=== PATIENT | male | born 1980 | race Two or more races ===

== ENCOUNTER 2024-12-05 16:04 | Inpatient (IN) | payer MEDICARE, OTHER ==
[~2024-12-05] VITALS: Ht 175.3 cm; Wt 120.2 kg
--- NOTE | 2024-12-05 17:03 | ED.PDOC ---
HPI (NEURO) HPI Comments This is a 44 year old male presenting to the ED with chief complaint of dizziness. Patient reports that he has been experiencing increased dizziness and imbalance since this morning. Patient relays that he normally is able to move around his home with a motorized wheelchair, however, it has run out of battery and he has been forced to use a walker. Patient states he has history of 3 CVAs in the past. Patient notes he was brought in by his administrative accountant. Patient denies any N/V, fever, chills, chest pain, SOB, or headache. Chief Complaint: Dizziness Time Seen by MD: 17:01 Reviewed Notes: Nurses Notes, Medications, Allergies Information Source: Patient Mode of Arrival: Wheelchair Severity: Moderate Dizziness/Weakness Severity: Unable to do activities Timing: Hours Duration: Since onset Prehospital treatment: None Symptoms: Imbalance Past Medical History PAST MEDICAL HISTORY: CVA (x3), DM, HTN Surgical History: Denies all surgeries Family History Family History: Reviewed,noncontributory to illness Social History Smoker: Cigarettes Alcohol: Denies ETOH Use Drugs: Denies Drug Use Lives In: Home Constitutional: denies: chills, diaphoresis, fatigue, fever, malaise, sweats, weakness, others EENTM: denies: blurred vision, double vision, ear bleeding, ear discharge, ear drainage, ear pain, ear ringing, eye pain, eye redness, hearing loss, mouth pain, mouth swelling, nasal discharge, nose bleeding, nose congestion, nose pain, photophobia, tearing, throat pain, throat swelling, voice changes, others Respiratory: denies: cough, hemoptysis, orthopnea, SOB at rest, shortness of breath, SOB with excertion, stridor, wheezing, others Cardiovascular: denies: chest pain, dizzy spells, diaphoresis, Dyspnea on exertion, edema, irregular heart beat, left arm pain, lightheadedness, palpitations, PND, syncope, others Gastrointestinal: denies: abdomen distended, abdominal pain, blood streaked bowels, constipated, diarrhea, dysphagia, difficulty swallowing, hematemesis, melena, nausea, poor appetite, poor fluid intake, rectal bleeding, rectal pain, vomiting, others Genitourinary: denies: burning, dysuria, flank pain, frequency, hematuria, incontinence, penile discharge, penile sore, pain, testicle pain, testicle swelling, urgency, others Neurological: reports: dizziness; denies: fainting, headache, left sided numbness, left sided weakness, numbness, paresthesia, pre-existing deficit, right sided numbness, right sided weakness, seizure, speech problems, tingling, tremors, weakness, others Musculoskeletal: denies: back pain, gout, joint pain, joint swelling, muscle pain, muscle stiffness, neck pain, others Integumetry: denies: bruises, change in color, change in hair/nails, dryness, laceration, lesions, lumps, rash, wounds, others Allergic/Immunocompromised: denies: Difficulty Healing, Frequent Infections, Hives, Itching, others Hematologic/Lymphatic: denies: anemia, blood clots, easy bleeding, easy bruising, swollen glands, others Endocrine: denies: excessive hunger, excessive sweating, excessive thirst, excessive urination, flushing, intolerance to cold, intolerance to heat, unexplained weight gain, unexplained weight loss, others Psychiatric: denies: anxiety, bipolar disorder, depression, hopeless, panic disorder, schizophrenia, sleepless, suicidal, others All Other Systems: Reviewed and Negative Physical Exam General Appearance: Moderate Distress HEENT: Normal ENT Inspection, Pharynx Normal, TMs Normal Neck: Full Range of Motion, Non-Tender, Normal, Normal Inspection Respiratory: Chest Non-Tender, Lungs Clear, No Accessory Muscle Use, No Respiratory Distress, Normal Breath Sounds Cardiovascular: No Edema, No JVD, No Murmur, No Gallop, Normal Peripheral Pulses, Regular Rate/Rhythm Breast Exam: Deferred Gastrointestinal: No Organomegaly, Non Tender, No Pulsatile Mass, Normal Bowel Sounds, Soft Genitalia: Deferred Pelvic: Deferred Rectal: Deferred Extremities: No calf tenderness, Normal capillary refill, No pedal edema Musculoskeletal : Apperance: Normal Neurologic: Alert, lobster man II-XII nml as Tested, Motor Weakness, Normal Affect, Normal Mood, No Sensory Deficits Cerebellar Function: Other (Unsteady on the gait) Reflexes: Normal Skin: Dry, Normal Color, Warm Lymphatic: No Adenopathy Was a procedure done? Was a procedure done?: No Differential Diagnosis (SZ) Seizure: CVA/TIA General Weakness: Anemia, Dehydration X-Ray, Labs, Meds, VS Vital Signs Date Time Temp Pulse Resp B/P (MAP) Pulse Ox O2 Delivery O2 Flow Rate FiO2 12/05/24 20:12 98.4 83 17 158/95 (116) 96 98.4 12/05/24 17:10 97.9 84 12 166/82 (110) 96 97.9 Lab Test 12/05/24 17:27 12/05/24 17:12 12/05/24 16:50 Range/Units Urine Color Yellow Yellow Urine Clarity Turbid H Clear Urine pH 5.5 5.0-9.0 Urine Specific [place] 1.029 1.001-1.035 Urine Protein 1+ H Negative Urine Ketones Trace Negative Urine Blood 1+ H Negative /uL Urine Nitrite Negative Negative Urine Bilirubin Negative Negative Urine Urobilinogen Normal Negative mg/dL Urine Leukocyte Esterase Negative Negative /uL Urine RBC 9 0 - 3 /hpf Urine Microscopic WBC 4 H 0-3 /HPF Urine Squamous Epithelial Cells Few <5 /hpf Urine Calcium Oxalate Crystals Many None Seen Urine Bacteria Few H None Seen /hpf Urine Mucus Few None Seen Urine Sperm Present None Seen /hpf Urine Glucose 1+ H Normal mg/dL White Blood Count 7.2 4.4-10.8 10^3/uL Red Blood Count 4.55 4.5-5.90 10^6/uL Hemoglobin 14.8 13.5-17.5 g/dL Hematocrit 43.1 41.0-53.0 % Mean Corpuscular Volume 94.8 80.0-100.0 fL Mean Corpuscular Hemoglobin 32.5 H 28.0-32.0 pg Mean Corpuscular Hemoglobin Concent 34.3 32.0-36.0 g/dL Red Cell Distribution Width 13.9 11.8-14.3 % Platelet Count 240 140-450 10^3/uL Mean Platelet Volume 7.6 6.9-10.8 fL Neutrophils (%) (Auto) 69.1 37.0-80.0 % Lymphocytes (%) (Auto) 19.8 10.0-50.0 % Monocytes (%) (Auto) 7.5 0.0-12.0 % Eosinophils (%) (Auto) 2.5 0.0-7.0 % Basophils (%) (Auto) 1.1 0.0-2.0 % Neutrophils # (Auto) 5.0 1.6-8.6 10 ^3/uL Lymphocytes # (Auto) 1.4 0.4-5.4 10 ^3/uL Monocytes # (Auto) 0.5 0-1.3 10 ^3/uL Eosinophils # (Auto) 0.2 0-0.8 10 ^3/uL Basophils # (Auto) 0.1 0-0.2 10 ^3/uL Nucleated Red Blood Cells 0.0 % Sodium Level 141 136-145 mmol/L Potassium Level 3.6 3.5-5.1 mmol/L Chloride Level 106 98-107 mmol/L Carbon Dioxide Level 27 20-31 mmol/L Anion Gap 8 5-15 Blood Urea Nitrogen 12 9-23 mg/dL Creatinine 0.89 0.700-1.30 mg/dL Glomerular Filtration Rate Calc 108 >90 mL/min BUN/Creatinine Ratio 13.5 10.0-20.0 Serum Glucose 145 H 74-106 mg/dL Calcium Level 9.4 8.7-10.4 mg/dL POC Glucose 143 H 70-106 mg/dl CAT scan of the head is negative The patient's CBC is within normal limits The chemistry panel is within normal limits The urine test is negative The patient is being admitted to the hospitalist at this time The diagnosis is autonomic dysfunction Images Reviewed?: Images reviewed and evaluated by me Time of 1ST Reevaluation: 20:16 Reevaluation 1ST: Unchanged Patient Education/Counseling: Diagnosis, Treatment, Prognosis Family Education/Counseling: No Family Present Departure 1 Departure Time of Disposition: 20:16 Impression: Primary Impression: Autonomic dysfunction Additional Impression: Generalized weakness Disposition: ADMITTED INPATIENT Admit to: [facility] Condition: Fair Critical Care Note Critical Care Time?: Yes (45 min-critical care time only) Stability Stability form required: Yes Unstable for transfer: Telemetry monitoring (Telemetry monitoring required), ED Physician Assesment (Clinical assesment) Heart Score Heart Score: Heart Score Response (Comments) Value History N/A 0 EKG N/A 0 Age N/A 0 Risk Factors N/A 0 Troponin N/A 0 Total 0 I personally scribed for LIVAN FATIMA MD ([email or web address]) on 12/05/24 at 17:02. Electronically submitted by Adis Land ([email or web address]). I personally scribed for LIVAN FATIMA MD ([email or web address]) on 12/05/24 at 17:05. Electronically submitted by Adis Land ([email or web address]). LIVAN FATIMA MD Dec 05, 2024 17:02
--- NOTE | 2024-12-05 17:19 | DVH ---
EXAM: CT HEAD WITHOUT CONTRAST INDICATION: dizziness TECHNIQUE: CT images of the head were obtained without administration of IV contrast. CT scans at [facility] use dose modulation, iterative reconstruction, and/or weight based dosing when appropriate to reduce radiation dose to as low as reasonably achievable. COMPARISON: None FINDINGS: PARENCHYMA: No acute hemorrhage. There is no mass effect, midline shift, or herniation. There is pres ervation of the pederson white differentiation. Mild scattered hypoattenuation along the periventricular, centrum semiovale, and deep white matter tracts, which are nonspecific however statistically most li angelique represent chronic microvascular ischemic change. VENTRICLES: No hydrocephalus. EXTRA-AXIAL SPACES: No extra-axial fluid collections. OTHER: The bony structures are intact. Mild scattered paranasal sinus mucosal thickening. IMPRESSION: 1. No CT evidence of an acute intracranial abnormality.
[2024-12-05 17:23] LABS: Basophils # (auto) 0.1 10 ^3/uL (0-0.2); Basophils % (auto) 1.1 % (0.0-2.0); Eosinophils # (auto) 0.2 10 ^3/uL (0-0.8); Eosinophils % (auto) 2.5 % (0.0-7.0); Hematocrit 43.1 % (41.0-53.0); Hemoglobin 14.8 g/dL (13.5-17.5); Lymphocytes # (auto) 1.4 10 ^3/uL (0.4-5.4); Lymphocytes % (auto) 19.8 % (10.0-50.0); Mean Corpuscular Hemoglobin 32.5 pg (28.0-32.0); Mean Corpuscular Hgb Conc. 34.3 g/dL (32.0-36.0); Mean Corpuscular Volume 94.8 fL (80.0-100.0); Monocytes # (auto) 0.5 10 ^3/uL (0-1.3); Monocytes % (auto) 7.5 % (0.0-12.0); Neutrophils % (auto) 69.1 % (37.0-80.0); Platelet Count (auto) 240 10^3/uL (140-450); Red Blood Cells 4.55 10^6/uL (4.5-5.90); Red Cell Distribution Width 13.9 % (11.8-14.3); White Blood Cell 7.2 10^3/uL (4.4-10.8)
[2024-12-05 17:33] LABS: Chloride 106 mmol/L (98-107); Potassium 3.6 mmol/L (3.5-5.1); Sodium 141 mmol/L (136-145)
[2024-12-05 17:34] LABS: Anion Gap 8 (5-15); Carbon Dioxide 27 mmol/L (20-31)
[2024-12-05 17:35] LABS: Calcium 9.4 mg/dL (8.7-10.4)
[2024-12-05 17:39] LABS: BUN/Creatinine Ratio 13.5 (10.0-20.0); Blood Urea Nitrogen 12 mg/dL (9-23)
[2024-12-05 17:40] LABS: Glucose 145 mg/dL (74-106)
[2024-12-05 18:14] LABS: Urine Bacteria FEW /hpf (None Seen); Urine Blood 1+ /uL (Negative); Urine Clarity Turbid (Clear); Urine Color Yellow (Yellow); Urine Mucus FEW (None Seen); Urine Protein, UAD 1+ (Negative); Urine Specific Gravity 1.029 (1.001-1.035); Urine Sperm PRESENT /hpf (None Seen); Urine Squamous Epithelial Cell FEW /hpf (<5); Urine Urobilinogen Normal (Negative); Urine WBC 4 /HPF (0-3); Urine pH 5.5 (5.0-9.0)
[2024-12-05] MEDS ORDERED: NITROGLYCERIN 0.4 MG SL TAB SL PRN (21:00)
[2024-12-05] MEDS ORDERED: ONDANSETRON HCL 4 MG/2 ML VIAL IV PRN (21:00)
[2024-12-05] MEDS ORDERED: MORPHINE SULFATE INJ 2 MG/ml SYRG IV PRN ×2 (21:00)
[2024-12-05] MEDS ORDERED: ACETAMINOPHEN 325 MG TAB PO PRN (21:00)
[2024-12-05] MEDS ORDERED: DOCUSATE SOD 100 MG CAP PO PRN (21:00)
--- NOTE | 2024-12-05 21:12 | DVHHPRES ---
History of Present Illness Resident Creating Document: ARTHUR SUBRAMANIAN RESIDENT History of Present Illness , a 44-year-old male with a history of nicotine abuse, grade II obesity, diabetes, hypertension, left hemiplegia at baseline and three prior strokes presented to the ED with dizziness and imbalance that began earlier in the day. He typically uses a motorized wheelchair but had to use a walker due to a battery, which worsened his unsteadiness. He was brought in by his elder counselor and denied nausea, vomiting, fever, chills, chest pain, shortness of breath, or headache. A head CT, CBC, chemistry panel, and urine test were all within normal limits for a patient presenting with dizziness and imbalance. The patient, who is hemodynamically stable and afebrile with mildly elevated blood pressure ([id number]), is being admitted under hospitalist care with further workup. The patient's symptoms are attributed to multiple possible causes: seiz ures potentially related to prior cerebrovascular accidents (CVA) or transient ischemic attacks (TIA); general weakness possibly due to anemia or dehydration; and a diagnosis of autonomic dysfunction, which may be contributing to his dizziness and imbalance. No prior visits were noted. CT head, labs so far unremarkable. Extremely poor historian, can not remember his PCP name or any other medications that he takes. Conversation points out towards possible medication nonadherence. He is taken care by a caregiver, who we will visit during the daytime to provide further medical details along with medication list. At home patient mentions having a walker with which he is able to walk with occasional support. He has means of food and hydration at home. Past Medical History nicotine abuse, grade II obesity, diabetes, hypertension, left-sided hemiplegia and three prior strokes Past Surgical History: None Family History: Hyperlipidemia, Hypertension Family History Noncontributory Smoke: # pack years (Twenty pack years, presumably patient has cut down and still smoking on 3 cigarettes per day.) ALCOHOL: none Drugs: None Lives: Alone (Caregiver occasionally comes to help) Domestic Violence: Neg Review of Systems Constitutional: Yes: Weakness; No: Fever, Chills, Sweats, Malaise, Other Eyes: No: Pain, Vision change, Conjunctivae inflammation, Eyelid inflammation, Other, Redness ENT: No: Ear pain, Ear discharge, Nose pain, Nose discharge, Nose congestion, Mouth pain, Mouth swelling, Throat pain, Throat swelling, Other Respiratory: No: Cough, Dry, Shortness of breath, SOB with excertion, Wheezing, Hemoptysis, Pleuritic Pain, Sputum, Wheezing, Other Cardiovascular: No: Chest Pain, Palpitations, Orthopnea, Paroxysmal Noc. Dyspnea, Edema, Lt Headedness, Other Gastrointestinal: No: Nausea, Vomiting, Abdominal Pain, Diarrhea, Constipation, Melena, Hematochezia, Other Genitourinary: No Dysuria, No Frequency, No Incontinence, No Hematuria, No Retention, No Other Musculoskeletal: No: other, neck pain, shoulder pain, arm pain, back pain, hand pain, leg pain, foot pain Skin: No: Rash, Lesions, Jaundice, Bruising, Other Neurological: Incoordination, Other (Gait instability and dizziness); No: Weak ness, Numbness, Change in speech, Confusion, Seizures Allergies: Coded Allergies: Egg-derived Products (Verified Allergy, Unknown, 12/06/24) Oatmeal (Verified Allergy, Unknown, 12/06/24) Venlafaxine (Verified Allergy, Unknown, 12/05/24) Uncoded Allergies: NUTS (Allergy, Unknown, 12/06/24) Medications Current Medications Medications Dose Ordered Sig/Alejandra Route Start Time Stop Time Status Last Admin Dose Admin Ondansetron HCl 4 mg Q4HP PRN IV 12/05/24 21:00 UNV Docusate Sodium 100 mg BIDPRN PRN PO 12/05/24 21:00 UNV Acetaminophen 650 mg Q6HP PRN PO 12/05/24 21:00 UNV Morphine Sulfate 2 mg Q4HPRN PRN IV 12/05/24 21:00 UNV Nitroglycerin 0.4 mg Q5MINP PRN SL 12/05/24 21:00 UNV Morphine Sulfate 2 mg Q30M PRN IV 12/05/24 21:00 UNV Nicotine 1 patch DAILY TD 12/06/24 10:00 UNV Exam Vital Signs Vital Signs Date Time Temp Pulse Resp B/P (MAP) Pulse Ox O2 Delivery O2 Flow Rate FiO2 12/05/24 20:12 98.4 83 17 158/95 (116) 96 98.4 General Appearance: Alert, Oriented X3, Cooperative, No acute distress HEENT: Atraumatic, PERRLA, EOMI, Mucous membr. moist/pink, Other (Mild dehydration) Respiratory: Clear to auscultation, Normal air movement, Other (Breathing comfortably in the room air) Cardiovascular: Regular rate, Normal S1, Normal S2, No murmurs Abdominal: Normal bowel sounds, Soft, No tenderness, No hepatospenomegaly, No masses Extremities: No clubbing, No cyanosis, No edema, Normal pulses, No tenderness/swelling Skin: No rashes, No breakdown, No significant lesion Neuro: Normal speech, Normal tone, Sensation intact, Cranial nerves 3-12 NL, Reflexes 2+ (On right side, exaggerated on left side), Other (Baseline patient has left-sided hemiparesis, secondary to previous strokes, still can move strength 1/5 both upper and lower extremity on the left side. Mild contracture. Apart from baseline no new changes, grossly negative for BPPV) Psych/Mental Status: Mental status NL, Mood NL Labs/Xrays Labs Test 12/05/24 17:27 12/05/24 17:12 12/05/24 16:50 Range/Units Urine Color Yellow Yellow Urine Clarity Turbid H Clear Urine pH 5.5 5.0-9.0 Urine Specific [place] 1.029 1.001-1.035 Urine Protein 1+ H Negative Urine Ketones Trace Negative Urine Blood 1+ H Negative /uL Urine Nitrite Negative Negative Urine Bilirubin Negative Negative Urine Urobilinogen Normal Negative mg/dL Urine Leukocyte Esterase Negative Negative /uL Urine RBC 9 0 - 3 /hpf Urine Microscopic WBC 4 H 0-3 /HPF Urine Squamous Epithelial Cells Few <5 /hpf Urine Calcium Oxalate Crystals Many None Seen Urine Bacteria Few H None Seen /hpf Urine Mucus Few None Seen Urine Sperm Present None Seen /hpf Urine Glucose 1+ H Normal mg/dL White Blood Count 7.2 4.4-10.8 10^3/uL Red Blood Count 4.55 4.5-5.90 10^6/uL Hemoglobin 14.8 13.5-17.5 g/dL Hematocrit 43.1 41.0-53.0 % Mean Corpuscular Volume 94.8 80.0-100.0 fL Mean Corpuscular Hemoglobin 32.5 H 28.0-32.0 pg Mean Corpuscular Hemoglobin Concent 34.3 32.0-36.0 g/dL Red Cell Distribution Width 13.9 11.8-14.3 % Platelet Count 240 140-450 10^3/uL Mean Platelet Volume 7.6 6.9-10.8 fL Neutrophils (%) (Auto) 69.1 37.0-80.0 % Lymphocytes (%) (Auto) 19.8 10.0-50.0 % Monocytes (%) (Auto) 7.5 0.0-12.0 % Eosinophils (%) (Auto) 2.5 0.0-7.0 % Basophils (%) (Auto) 1.1 0.0-2.0 % Neutrophils # (Auto) 5.0 1.6-8.6 10 ^3/uL Lymphocytes # (Auto) 1.4 0.4-5.4 10 ^3/uL Monocytes # (Auto) 0.5 0-1.3 10 ^3/uL Eosinophils # (Auto) 0.2 0-0.8 10 ^3/uL Basophils # (Auto) 0.1 0-0.2 10 ^3/uL Nucleated Red Blood Cells 0.0 % Sodium Level 141 136-145 mmol/L Potassium Level 3.6 3.5-5.1 mmol/L Chloride Level 106 98-107 mmol/L Carbon Dioxide Level 27 20-31 mmol/L Anion Gap 8 5-15 Blood Urea Nitrogen 12 9-23 mg/dL Creatinine 0.89 0.700-1.30 mg/dL Glomerular Filtration Rate Calc 108 >90 mL/min BUN/Creatinine Ratio 13.5 10.0-20.0 Serum Glucose 145 H 74-106 mg/dL Calcium Level 9.4 8.7-10.4 mg/dL POC Glucose 143 H 70-106 mg/dl Assessment/Plan Assessment/Plan Assessment: # new onset of dizziness with falling sensation and # extremely poor historian # prior history of 3 strokes # history of nicotine abuse with more than 20 pack-year smoking history currently on 3 cigarettes per day # active nicotine vapor # reports medical noncompliance/nonadherence # baseline left-sided hemiparesis # hypertension, likely uncontrolled # grade 2 obesity # history of diabetes # hypertension # ruled out hemorrhagic stroke with negative CT. # possible TIA # possible autonomic dysfunction # deconditioning, comparatively reduced mobility # ruled out DVT # mild hypokalemia Plan: # conservative management telemetry, physical therapy, continue aspirin and atorvastatin # based on physical therapy might need sw consult. # obtain full medical history and medication list from caregiver when visits during the daytime. # nicotine patch as needed # counseled regarding medical compliance # in the absence of appropriate medical history started the patient on 5 mg amlodipine after ruling out acute intracranial pathology # weight loss counseling done. # check for HbA1c # 11 minute cessation counseling done for smoking cessation. # counseled regarding the downside of vaping # labs daily and electrolyte management as needed. # echo/TTE/carotid Doppler pending along with orthostatic and relevant examinati ons Code status: Full code discussed over 31 minutes along with care plan. Patient is agreeable. Patient is being treated in hospital with further workup. Case discussed with Dr. Velasco. Plan discussed with: Patient My Orders Orders - ARTHUR SUBRAMANIAN RESIDENT Procedure Category Date Status Time Admit ADMIT 12/05/24 Transmitted 20:52 Allergies RONNELL 12/05/24 In Process 20:52 Code Status CODE 12/05/24 Transmitted 20:52 Ondansetron Hcl PHA 12/05/24 Logged (Zofran) 21:00 Docusate Sodium PHA 12/05/24 Logged Capsule (Colace 21:00 Fall Risk Precautions RONNELL 12/05/[address] 20:52 Complete Blood Count LAB 12/06/24 Verified 04:00 Comprehensive LAB 12/06/24 Verified Metabolic Panel 04:00 Pt Request For Service PT 12/05/24 Logged 20:52 Echo 2d Mode Cardiac US 12/05/24 Logged DOP 20:52 Carotid Duplx W Color US 12/05/24 Logged DOP 20:52 Condition: Serious RONNELL 12/05/24 In Process 20:52 Acetaminophen Tablet PHA 12/05/24 Logged (Tylenol Tablet) 21:00 Clear Liq Diet DIET 12/06/24 Transmitted Breakfast Bedside Commode RONNELL 12/05/24 In Process 20:52 Maintain Bed Rest RONNELL 12/05/24 In Process 20:52 Morphine Sulfate PHA 12/05/24 Logged Injection 21:00 Sequential RONNELL 12/05/24 In Process Compression Device Nitroglycerin PHA 12/05/24 Logged Sublingual (Ntrostat 21:00 Morphine Sulfate PHA 12/05/24 Logged Injection 21:00 Oxygen By Nasal RT 12/05/24 Transmitted Cannula 20:52 Stat Ekg For Chest RONNELL 12/05/24 In Process Pain 20:52 Notify Md Of Changes RONNELL 12/05/24 In Process From Base 20:52 Sld Teacher For [facility] 12/05/24 In Process 24 Hours 20:52 Emergency Dysrhythmia [facility] 12/05/24 In Process Protocol 20:52 Rhythm Strips Once [facility] 12/05/24 In Process Every Shift 20:52 Orthostatic Vital ED NURSING 12/05/24 Transmitted Signs Chest Xray 1 View XY 12/05/24 Logged 21:01 Drug Screen LAB 12/05/24 Logged 21:01 Thyroid Stimulating LAB 12/05/24 In Process Hormone 21:01 Troponin-I Hs LAB 12/05/24 In Process 21:01 Ekg Heart Rolfe HDVI 12/05/24 Logged 21:01 D-Dimer LAB 12/05/24 Logged 21:01 Prothrombin Time W/ LAB 12/05/24 Logged INR 21:01 Bilat Lower Dvt US 12/05/24 Logged 21:01 B-Type Natriuretic LAB 12/05/24 In Process Peptide 21:06 Nicotine 14mg/24hr PHA 12/06/24 Logged (Nicoderm 14mg/24hr) 10:00 Get List Of Home ORDERS 12/05/24 Verified Medications 21:09 Communication Order ORDERS 12/05/24 Verified 21:09 Date of Service: Dec 05, 2024 Billing Provider: ALICIA VELASCO MD Secondary Visit Codes: [id number] CARE PLAN 30 MINUTES ARTHUR SUBRAMANIAN RESIDENT Dec 05, 2024 21:12 ALICIA VELASCO MD Dec 08, 2024 22:16
[2024-12-05 21:33] LABS: INR 0.96 (0.9-1.15); Prothrombin Time 10.2 sec (9.3-11.8)
--- NOTE | 2024-12-05 22:39 | DVH ---
Carotid Duplex Date: 12/05/2024 09:17 PM Clinical History: prior stroke and dizziness Comparison: None Technique: Duplex Doppler evaluation of the extracranial carotid and vertebral arteries including col or Doppler and spectral/pulsed waveform analysis was performed. Findings: Velocities and ratios within normal limits. IMPRESSION: No hemodynamically significant stenosis noted in the right carotid system. No hemodynamically significant stenosis noted in the left carotid system. Reference: Radiology 2003; [id number]
--- NOTE | 2024-12-05 22:39 | DVH ---
CHEST RADIOGRAPH Indication: rule out gross intrathoracic pathology Technique: Single frontal view of the chest was obtained Comparison: None FINDINGS: Lines and Tubes: None Lungs: No focal consolidation. Pleura: No effusion. No pneumothorax. Cardiomediastinal contours: Unremarkable Bones: No acute osseous abnormality. IMPRESSION: No acute cardiopulmonary disease.
--- NOTE | 2024-12-05 22:40 | DVH ---
Bilateral lower extremity venous duplex Clinical History: non ambulatory Comparison: None Findings: Duplex Doppler evaluation of the deep venous systems of both lower extremities from the common femora l veins to the popliteal veins including color Doppler and spectral/pulsed waveform analysis was perf ormed. RIGHT SIDE: The common femoral vein demonstrates appropriate compressibility and waveform variability. There is compressibility/patency of the great saphenous vein at the proximal thigh. The femoral vein demonstrates appropriate compressibility and waveform variability. The deep femoral vein demonstrates appropriate compressibility and waveform variability. The popliteal vein demonstrates appropriate compressibility and waveform variability. There is normal compressibility at the tibioperoneal trunk. LEFT SIDE: The common femoral vein demonstrates appropriate compressibility and waveform variability. There is compressibility/patency of the great saphenous vein at the proximal thigh. The femoral vein demonstrates appropriate compressibility and waveform variability. The deep femoral vein demonstrates appropriate compressibility and waveform variability. The popliteal vein demonstrates appropriate compressibility and waveform variability. There is normal compressibility at the tibioperoneal trunk. IMPRESSION: No right or left femoropopliteal venous thrombosis. If clinical concern/symptoms persist or worsen, short-interval follow-up study is suggested. END IMPRESSION:
[2024-12-05 22:59] LABS: Amphetamine Screen, Urine Neg (NEGATIVE); Benzodiazephine Screen, Urine Neg (NEGATIVE); Cannabinoid Screen, Urine Neg (NEGATIVE); Opiate Scree,Urine Neg (NEGATIVE); Phencyclidine Screen, Urine Neg (NEGATIVE)
[2024-12-05 23:06] LABS: Barbiturate Scree,Urine Neg (NEGATIVE); Cocaine Screen, Urine Neg (NEGATIVE)
[2024-12-05 23:24] VITALS: BP_SYST 158; BP_SYST 161; BP_DIAS 93; PULSE 61; PULSE 63; PULSE 68; RESP 15; RESP 18; TEMP 97.9; O2SAT 95
[2024-12-05 23:31] LABS: Alanine Aminotransferase 33 U/L (7-40); Albumin 4.3 g/dL (3.2-4.8); Alkaline Phosphatase 104 U/L (46-116); Anion Gap 7 (5-15); Aspartate Aminotransferase 35 U/L (13-40); BUN/Creatinine Ratio 14.8 (10.0-20.0); Bilirubin, Total 0.7 mg/dL (0.2-1.0); Blood Urea Nitrogen 12 mg/dL (9-23); Calcium 9.1 mg/dL (8.7-10.4); Carbon Dioxide 26 mmol/L (20-31); Chloride 107 mmol/L (98-107); Glucose 105 mg/dL (74-106); Potassium 4.1 mmol/L (3.5-5.1); Sodium 140 mmol/L (136-145)
[2024-12-05 23:33] LABS: Free T3 2.93 pg/mL (2.3-4.2)
[2024-12-05 23:34] LABS: Free T4 (Free Thyroxine) 1.22 ng/dL (0.89-1.76)
[2024-12-06] VITALS (10 sets, daily range): BP systolic 130–176; BP diastolic 70–99; PULSE 64–92; RESP 15–18; TEMP 97.4–98.1; O2SAT 92–97
[2024-12-06 07:23] LABS: Basophils # (auto) 0 10 ^3/uL (0-0.2); Basophils % (auto) 0.4 % (0.0-2.0); Eosinophils # (auto) 0.2 10 ^3/uL (0-0.8); Eosinophils % (auto) 2.6 % (0.0-7.0); Hematocrit 43.8 % (41.0-53.0); Lymphocytes # (auto) 1.7 10 ^3/uL (0.4-5.4); Lymphocytes % (auto) 26.8 % (10.0-50.0); Mean Corpuscular Hemoglobin 32.5 pg (28.0-32.0); Mean Corpuscular Hgb Conc. 34.2 g/dL (32.0-36.0); Mean Corpuscular Volume 95.1 fL (80.0-100.0); Monocytes # (auto) 0.5 10 ^3/uL (0-1.3); Monocytes % (auto) 7.6 % (0.0-12.0); Neutrophils # (auto) 3.9 10 ^3/uL (1.6-8.6); Neutrophils % (auto) 62.6 % (37.0-80.0); Nucleated Red Blood Cells % 0.1 %; Platelet Count (auto) 233 10^3/uL (140-450); Red Cell Distribution Width 14.1 % (11.8-14.3); White Blood Cell 6.3 10^3/uL (4.4-10.8)
[2024-12-06 07:42] LABS: Alanine Aminotransferase 32 U/L (7-40); Albumin 4.2 g/dL (3.2-4.8); Alkaline Phosphatase 111 U/L (46-116); Anion Gap 6 (5-15); Aspartate Aminotransferase 15 U/L (13-40); BUN/Creatinine Ratio 16.9 (10.0-20.0); Blood Urea Nitrogen 12 mg/dL (9-23); Calcium 9.7 mg/dL (8.7-10.4); Carbon Dioxide 29 mmol/L (20-31); Sodium 143 mmol/L (136-145); Total Protein 6.8 g/dL (5.7-8.2)
[2024-12-06 07:43] LABS: Bilirubin, Total 1.2 mg/dL (0.2-1.0); Chloride 108 mmol/L (98-107); Glucose 119 mg/dL (74-106); Potassium 3.3 mmol/L (3.5-5.1)
[2024-12-06] MEDS: NICOTINE 14 MG/24HR TOPICAL PATCH TD SCH (09:22)
[2024-12-06 11:16] LABS: Hepatitis B Surface Antigen Negative (Negative); Hepatitis C Antibody Negative (Negative)
[2024-12-06] MEDS: ATORVASTATIN 20 MG TAB PO ONE (11:23)
[2024-12-06] MEDS: ASPirin 81 mg TAB PO ONE (11:24)
[2024-12-06] MEDS: amLODIPine BESYLATE 5 MG TAB PO ONE (11:24)
--- NOTE | 2024-12-06 13:24 | DVHPN2 ---
Reviewed: Care Plan, H&P, Labs, Medications, Previous Orders, Radiology Changes from previous H/P or p: No Changes Eyes: No Pain, No Vision change, No Conjunctivae inflammation, No Eyelid inflammation, No Other, No Redness ENT: No Ear pain, No Ear discharge, No Nose pain, No Nose discharge, No Nose congestion, No Mouth pain, No Mouth swelling, No Throat pain, No Throat swelling, No Other Cardiovascular: No Chest Pain, No Palpitations, No Orthopnea, No Paroxysmal Noc. Dyspnea, No Edema, No Lt Headedness, No Other Respiratory: No Cough, No Dry, No Shortness of breath, No SOB with excertion, No Wheezing, No Hemoptysis, No Pleuritic Pain, No Sputum, No Other Gastrointestinal: No Nausea, No Vomiting, No Abdominal Pain, No Diarrhea, No Constipation, No Melena, No Hematochezia, No Other Genitourinary: No Dysuria, No Frequency, No Incontinence, No Hematuria, No Retention, No Other Musculoskeletal: No other, No neck pain, No shoulder pain, No arm pain, No back pain, No hand pain, No leg pain, No foot pain Skin: No Rash, No Lesions, No Jaundice, No Bruising, No Other Objective Vitals Vital Signs Date Time Temp Pulse Resp B/P (MAP) Pulse Ox O2 Delivery O2 Flow Rate FiO2 12/06/24 12:27 97.7 68 18 136/74 (94) 97 97.7 12/06/24 08:10 Room Air* 0 21 Intake/Output Intake and Output 12/06/24 07:00 Intake Total 240 ml Balance 240 ml Intake Oral 240 ml # Voids 1 # Bowel Movements 1 Medications Current Medications Medications Dose Ordered Sig/Alejandra Route Start Time Stop Time Status Last Admin Dose Admin Ondansetron HCl 4 mg Q4HP PRN IV 12/05/24 21:00 Docusate Sodium 100 mg BIDPRN PRN PO 12/05/24 21:00 Acetaminophen 650 mg Q6HP PRN PO 12/05/24 21:00 Morphine Sulfate 2 mg Q4HPRN PRN IV 12/05/24 21:00 Nitroglycerin 0.4 mg Q5MINP PRN SL 12/05/24 21:00 Morphine Sulfate 2 mg Q30M PRN IV 12/05/24 21:00 Nicotine 1 patch DAILY TD 12/06/24 10:00 6/6/25 09:22 1 PATCH Aspirin 81 mg DAILY PO 12/07/24 10:00 Atorvastatin Calcium 40 mg HS PO 12/06/24 22:00 Amlodipine Besylate 5 mg DAILY PO 12/07/24 10:00 Laboratory Results Laboratory Tests 12/06/24 05:56 Chemistry Test 12/05/24 17:12 12/05/24 22:27 12/06/24 05:56 Calcium Level 9.4 mg/dL (8.7-10.4) 9.1 mg/dL (8.7-10.4) 9.7 mg/dL (8.7-10.4) Albumin 4.3 g/dL (3.2-4.8) 4.2 g/dL (3.2-4.8) Total Protein 7.0 g/dL (5.7-8.2) 6.8 g/dL (5.7-8.2) Coagulation Test 12/05/24 17:12 Prothrombin Time 10.2 sec (9.3-11.8) Prothrombin Time INR 0.96 (0.9-1.15) D-Dimer, Quantitative 0.29 mg/L FEU (0.0-0.49) Cardiac Markers Test 12/05/24 17:12 B-Type Natriuretic Peptide 11.82 pg/mL (0-100) LFT Test 12/05/24 22:27 12/06/24 05:56 Alanine Aminotransferase (ALT) 33 U/L (7-40) 32 U/L (7-40) Alkaline Phosphatase 104 U/L (46-116) 111 U/L (46-116) Aspartate Amino Transferase (AST) 35 U/L (13-40) 15 U/L (13-40) Total Bilirubin 0.7 mg/dL (0.2-1.0) 1.2 mg/dL (0.2-1.0) H HgA1c, TSH Test 12/05/24 17:12 Thyroid Stimulating Hormone (TSH) 0.45 uIU/mL (0.55-4.78) L Urinalysis Test 12/05/24 17:27 Urine Color Yellow (Yellow) Urine Clarity Turbid (Clear) H Urine pH 5.5 (5.0-9.0) Urine Specific [place] 1.029 (1.001-1.035) Urine Protein 1+ (Negative) H Urine Ketones Trace (Negative) Urine Blood 1+ /uL (Negative) H Urine Nitrite Negative (Negative) Urine Bilirubin Negative (Negative) Urine Urobilinogen Normal mg/dL (Negative) Urine Leukocyte Esterase Negative /uL (Negative) Urine RBC 9 /hpf (0 - 3) Urine Microscopic WBC 4 /HPF (0-3) H Urine Squamous Epithelial Cells Few /hpf (<5) Urine Calcium Oxalate Crystals Many (None Seen) Urine Bacteria Few /hpf (None Seen) H Urine Mucus Few (None Seen) Urine Sperm Present /hpf (None Seen) Urine Glucose 1+ mg/dL (Normal) H Labs and/or images reviewed: Labs reviewed by me, Image(s) reviewed by me Assessment/Plan Assessment/Plan Dizziness History of three strokes Hemiplegia Chronic current smoker: Counseling nicotine patch Hypertension Diabetes Moderate obesity Gait instability patient uses walker Chest x-ray negative CT head negative: Patient uses walker Carotid ultrasound negative DVT ruled out Rule out TIA Time spent 70 minutes Patient is full code Advanced care planning time 20 mts Plan discussed with: Patient Date of Service: Dec 06, 2024 Billing Provider: DEE DEE GAN MD Common Visit Codes: [id number] CARE 30-74 MIN DEE DEE GAN MD Dec 06, 2024 13:24
[2024-12-06] MEDS: POTASSIUM CHLORIDE 20 MEQ, LIDOCAINE 1% (LOCAL ANESTH.) 2 ML in SODIUM CHL 0.9% 100 ML IV ONE (13:33)
--- NOTE | 2024-12-06 21:04 | DVHSR ---
APPROVED REPORT EXAM: Two-dimensional and M-mode echocardiogram with Doppler and color Doppler. Blood Pressure: 147/87 mmHg INDICATION Dizziness and Vertigo RISK FACTORS Obesity: Height: 5'9, Weight: 264 DIMENSIONS LVDd4.5 (3.8-5.7cm)LA (2D)3.9 (1.9-4.0cm)Aortic Root4.4 (2.0-3.7cm) LVDs3.0 (2.5-4.0cm)LA (MM) (1.9-4.0cm)Aortic Cusp Exc2.2 (1.5-2.0cm) EF (%) 63.1 (55-70%)Rt. Atrium3.7 (1.9-4.0cm)Asc. Aorta cm IVSd1.1 (0.7-1.1cm)RV (D)3.9 (1.8-2.4cm) PWd1.0 (0.7-1.1cm) Mitral Valve MitralMitral Stenosis E wave0.61m/sMV Mean GR.mmHg A wave0.66m/sMV Peak GR.mmHg E/A ratio0.92D MVAcm2 DECEL [id number] 1/2 Timems Aortic Valve Aortic ValveAortic Stenosis V10.91m/Nicolasa Mean GR.3mmHg V21.21m/Nicolasa Peak GR.6mmHg LVOT Diameter2.8 (1.8-2.4cm)Doppler AVA4.63cm2 Pulmonic Valve V20.88m/s Other Information Quality : Technically LimitedRhythm : Technically limited study due to body habitus.patient position. Conclusion LV EF IS 65% NORMAL VALVES NORMAL RV FUNCTION NO EFFUSION
[2024-12-06] MEDS: ATORVASTATIN 20 MG TAB PO SCH (21:33)
[2024-12-07] VITALS (8 sets, daily range): BP systolic 125–152; BP diastolic 62–85; PULSE 58–84; RESP 13–17; TEMP 97.3–98.2; O2SAT 93–100
[2024-12-07] MEDS: ASPirin 81 mg TAB PO SCH (09:05)
[2024-12-07] MEDS: amLODIPine BESYLATE 5 MG TAB PO SCH (09:05)
[2024-12-08 01:00] VITALS: BP 138/95; PULSE 78; RESP 16; TEMP 98; O2SAT 95
[2024-12-08 05:00] VITALS: BP 169/62; PULSE 67; RESP 16; TEMP 98; O2SAT 96
[2024-12-08 08:00] VITALS: PULSE 66; PULSE 82
[2024-12-08 09:00] VITALS: BP_SYST 160; BP_SYST 169; BP_SYST 176; BP_DIAS 103; BP_DIAS 107; BP_DIAS 99; PULSE 71; PULSE 79; PULSE 89; RESP 18; TEMP 97.7; O2SAT 96
--- NOTE | 2024-12-08 12:27 | DVHPN2 ---
Reviewed: Care Plan, H&P, Labs, Medications, Previous Orders, Radiology Changes from previous H/P or p: No Changes Eyes: No Pain, No Vision change, No Conjunctivae inflammation, No Eyelid inflammation, No Other, No Redness ENT: No Ear pain, No Ear discharge, No Nose pain, No Nose discharge, No Nose congestion, No Mouth pain, No Mouth swelling, No Throat pain, No Throat swelling, No Other Cardiovascular: No Chest Pain, No Palpitations, No Orthopnea, No Paroxysmal Noc. Dyspnea, No Edema, No Lt Headedness, No Other Respiratory: No Cough, No Dry, No Shortness of breath, No SOB with excertion, No Wheezing, No Hemoptysis, No Pleuritic Pain, No Sputum, No Other Gastrointestinal: No Nausea, No Vomiting, No Abdominal Pain, No Diarrhea, No Constipation, No Melena, No Hematochezia, No Other Genitourinary: No Dysuria, No Frequency, No Incontinence, No Hematuria, No Retention, No Other Musculoskeletal: No other, No neck pain, No shoulder pain, No arm pain, No back pain, No hand pain, No leg pain, No foot pain Skin: No Rash, No Lesions, No Jaundice, No Bruising, No Other Objective Vitals Vital Signs Date Time Temp Pulse Resp B/P (MAP) Pulse Ox O2 Delivery O2 Flow Rate FiO2 12/08/24 09:05 160/62 12/08/24 09:00 97.7 79 18 96 97.7 71 89 12/08/24 08:00 Room Air* 0 21 Intake/Output Intake and Output 12/08/24 07:00 Intake Total 2145 ml Output Total 2000 ml Balance 145 ml Intake Oral 2145 ml Output Urine Total 2000 ml Medications Current Medications Medications Dose Ordered Sig/Alejandra Route Start Time Stop Time Status Last Admin Dose Admin Ondansetron HCl 4 mg Q4HP PRN IV 12/05/24 21:00 Docusate Sodium 100 mg BIDPRN PRN PO 12/05/24 21:00 Acetaminophen 650 mg Q6HP PRN PO 12/05/24 21:00 Morphine Sulfate 2 mg Q4HPRN PRN IV 12/05/24 21:00 Nitroglycerin 0.4 mg Q5MINP PRN SL 12/05/24 21:00 Morphine Sulfate 2 mg Q30M PRN IV 12/05/24 21:00 Nicotine 1 patch DAILY TD 12/06/24 10:00 12/08/24 09:06 1 PATCH Aspirin 81 mg DAILY PO 12/07/24 10:00 12/08/24 09:06 81 MG Atorvastatin Calcium 40 mg HS PO 12/06/24 22:00 12/07/24 20:37 40 MG Amlodipine Besylate 5 mg DAILY PO 12/07/24 10:00 12/08/24 09:05 5 MG Laboratory Results Laboratory Tests 12/06/24 05:56 Urinalysis Test 12/05/24 17:27 Urine Color Yellow (Yellow) Urine Clarity Turbid (Clear) H Urine pH 5.5 (5.0-9.0) Urine Specific [place] 1.029 (1.001-1.035) Urine Protein 1+ (Negative) H Urine Ketones Trace (Negative) Urine Blood 1+ /uL (Negative) H Urine Nitrite Negative (Negative) Urine Bilirubin Negative (Negative) Urine Urobilinogen Normal mg/dL (Negative) Urine Leukocyte Esterase Negative /uL (Negative) Urine RBC 9 /hpf (0 - 3) Urine Microscopic WBC 4 /HPF (0-3) H Urine Squamous Epithelial Cells Few /hpf (<5) Urine Calcium Oxalate Crystals Many (None Seen) Urine Bacteria Few /hpf (None Seen) H Urine Mucus Few (None Seen) Urine Sperm Present /hpf (None Seen) Urine Glucose 1+ mg/dL (Normal) H Microbiology Microbiology Date/Time Source Procedure Growth Status 12/05/24 22:27 Blood Blood Culture - Preliminary NO GROWTH AFTER 48 HOURS OF INCUBATION. Resulted Labs and/or images reviewed: Labs reviewed by me, Image(s) reviewed by me Assessment/Plan Assessment/Plan Dizziness History of three strokes Hemiplegia Chronic current smoker: Counseling nicotine patch Hypertension Diabetes Moderate obesity Gait instability patient uses walker Chest x-ray negative CT head negative: Patient uses walker Carotid ultrasound negative DVT ruled out TIA ruled out Time spent 55 minutes Patient is full code Plan discussed with: Patient Date of Service: Dec 07, 2024 Billing Provider: DEE DEE GAN MD Common Visit Codes: [id number] INP/OBS CARE(HIGH) DEE DEE GAN MD Dec 08, 2024 12:27
--- NOTE | 2024-12-08 12:30 | DVHPN2 ---
Reviewed: Care Plan, H&P, Labs, Medications, Previous Orders, Radiology Changes from previous H/P or p: No Changes Eyes: No Pain, No Vision change, No Conjunctivae inflammation, No Eyelid inflammation, No Other, No Redness ENT: No Ear pain, No Ear discharge, No Nose pain, No Nose discharge, No Nose congestion, No Mouth pain, No Mouth swelling, No Throat pain, No Throat swelling, No Other Cardiovascular: No Chest Pain, No Palpitations, No Orthopnea, No Paroxysmal Noc. Dyspnea, No Edema, No Lt Headedness, No Other Respiratory: No Cough, No Dry, No Shortness of breath, No SOB with excertion, No Wheezing, No Hemoptysis, No Pleuritic Pain, No Sputum, No Other Gastrointestinal: No Nausea, No Vomiting, No Abdominal Pain, No Diarrhea, No Constipation, No Melena, No Hematochezia, No Other Genitourinary: No Dysuria, No Frequency, No Incontinence, No Hematuria, No Retention, No Other Musculoskeletal: No other, No neck pain, No shoulder pain, No arm pain, No back pain, No hand pain, No leg pain, No foot pain Skin: No Rash, No Lesions, No Jaundice, No Bruising, No Other Objective Vitals Vital Signs Date Time Temp Pulse Resp B/P (MAP) Pulse Ox O2 Delivery O2 Flow Rate FiO2 12/08/24 09:05 160/62 12/08/24 09:00 97.7 79 18 96 97.7 71 89 12/08/24 08:00 Room Air* 0 21 Intake/Output Intake and Output 12/08/24 07:00 Intake Total 2145 ml Output Total 2000 ml Balance 145 ml Intake Oral 2145 ml Output Urine Total 2000 ml Medications Current Medications Medications Dose Ordered Sig/Alejandra Route Start Time Stop Time Status Last Admin Dose Admin Ondansetron HCl 4 mg Q4HP PRN IV 12/05/24 21:00 Docusate Sodium 100 mg BIDPRN PRN PO 12/05/24 21:00 Acetaminophen 650 mg Q6HP PRN PO 12/05/24 21:00 Morphine Sulfate 2 mg Q4HPRN PRN IV 12/05/24 21:00 Nitroglycerin 0.4 mg Q5MINP PRN SL 12/05/24 21:00 Morphine Sulfate 2 mg Q30M PRN IV 12/05/24 21:00 Nicotine 1 patch DAILY TD 12/06/24 10:00 12/08/24 09:06 1 PATCH Aspirin 81 mg DAILY PO 12/07/24 10:00 12/08/24 09:06 81 MG Atorvastatin Calcium 40 mg HS PO 12/06/24 22:00 12/07/24 20:37 40 MG Amlodipine Besylate 5 mg DAILY PO 12/07/24 10:00 12/08/24 09:05 5 MG Laboratory Results Laboratory Tests 12/06/24 05:56 Urinalysis Test 12/05/24 17:27 Urine Color Yellow (Yellow) Urine Clarity Turbid (Clear) H Urine pH 5.5 (5.0-9.0) Urine Specific [place] 1.029 (1.001-1.035) Urine Protein 1+ (Negative) H Urine Ketones Trace (Negative) Urine Blood 1+ /uL (Negative) H Urine Nitrite Negative (Negative) Urine Bilirubin Negative (Negative) Urine Urobilinogen Normal mg/dL (Negative) Urine Leukocyte Esterase Negative /uL (Negative) Urine RBC 9 /hpf (0 - 3) Urine Microscopic WBC 4 /HPF (0-3) H Urine Squamous Epithelial Cells Few /hpf (<5) Urine Calcium Oxalate Crystals Many (None Seen) Urine Bacteria Few /hpf (None Seen) H Urine Mucus Few (None Seen) Urine Sperm Present /hpf (None Seen) Urine Glucose 1+ mg/dL (Normal) H Microbiology Microbiology Date/Time Source Procedure Growth Status 12/05/24 22:27 Blood Blood Culture - Preliminary NO GROWTH AFTER 48 HOURS OF INCUBATION. Resulted Labs and/or images reviewed: Labs reviewed by me, Image(s) reviewed by me Assessment/Plan Assessment/Plan Dizziness History of Stroke x 3 in the past Hemiplegia Chronic current smoker: Counseling nicotine patch Hypertension Diabetes Moderate obesity Gait instability patient uses walker Chest x-ray negative CT head negative: Carotid ultrasound negative DVT ruled out TIA ruled out Time spent 55 minutes Patient is full code Plan discussed with: Patient Date of Service: Dec 08, 2024 Billing Provider: DEE DEE GAN MD Common Visit Codes: [id number] INP/OBS CARE(HIGH) DEE DEE GAN MD Dec 08, 2024 12:30
--- NOTE | 2024-12-08 12:34 | DVHDS2 ---
Discharge Summary Date of Admission Dec 05, 2024 at 20:52 Date of Discharge: Dec 08, 2024 Admitting Diagnosis Gait instability Wounds: none Labs/Diagnostic Data: Laboratory Results Test 12/06/24 05:56 12/05/24 22:27 12/05/24 17:27 12/05/24 17:12 White Blood Count 6.3 10^3/uL (4.4-10.8) Red Blood Count 4.60 10^6/uL (4.5-5.90) Hemoglobin 15.0 g/dL (13.5-17.5) Hematocrit 43.8 % (41.0-53.0) Mean Corpuscular Volume 95.1 fL (80.0-100.0) Mean Corpuscular Hemoglobin 32.5 pg (28.0-32.0) Mean Corpuscular Hemoglobin Concent 34.2 g/dL (32.0-36.0) Red Cell Distribution Width 14.1 % (11.8-14.3) Platelet Count 233 10^3/uL (140-450) Mean Platelet Volume 7.9 fL (6.9-10.8) Neutrophils (%) (Auto) 62.6 % (37.0-80.0) Lymphocytes (%) (Auto) 26.8 % (10.0-50.0) Monocytes (%) (Auto) 7.6 % (0.0-12.0) Eosinophils (%) (Auto) 2.6 % (0.0-7.0) Basophils (%) (Auto) 0.4 % (0.0-2.0) Neutrophils # (Auto) 3.9 10 ^3/uL (1.6-8.6) Lymphocytes # (Auto) 1.7 10 ^3/uL (0.4-5.4) Monocytes # (Auto) 0.5 10 ^3/uL (0-1.3) Eosinophils # (Auto) 0.2 10 ^3/uL (0-0.8) Basophils # (Auto) 0 10 ^3/uL (0-0.2) Nucleated Red Blood Cells 0.1 % Sodium Level 143 mmol/L (136-145) Potassium Level 3.3 mmol/L (3.5-5.1) Chloride Level 108 mmol/L (98-107) Carbon Dioxide Level 29 mmol/L (20-31) Anion Gap 6 (5-15) Blood Urea Nitrogen 12 mg/dL (9-23) Creatinine 0.71 mg/dL (0.700-1.30) Glomerular Filtration Rate Calc 116 mL/min (>90) BUN/Creatinine Ratio 16.9 (10.0-20.0) Serum Glucose 119 mg/dL (74-106) Calcium Level 9.7 mg/dL (8.7-10.4) Total Bilirubin 1.2 mg/dL (0.2-1.0) Aspartate Amino Transferase (AST) 15 U/L (13-40) Alanine Aminotransferase (ALT) 32 U/L (7-40) Alkaline Phosphatase 111 U/L (46-116) Total Protein 6.8 g/dL (5.7-8.2) Albumin 4.2 g/dL (3.2-4.8) Hepatitis B Surface Antigen Negative (Negative) Hepatitis C Antibody Negative (Negative) Free Thyroxine (T4) Calculated 1.22 ng/dL (0.89-1.76) Free Triiodothyronine (T3) pg/mL 2.93 pg/mL (2.3-4.2) Urine Color Yellow (Yellow) Urine Clarity Turbid (Clear) Urine pH 5.5 (5.0-9.0) Urine Specific [place] 1.029 (1.001-1.035) Urine Protein 1+ (Negative) Urine Ketones Trace (Negative) Urine Blood 1+ /uL (Negative) Urine Nitrite Negative (Negative) Urine Bilirubin Negative (Negative) Urine Urobilinogen Normal mg/dL (Negative) Urine Leukocyte Esterase Negative /uL (Negative) Urine RBC 9 /hpf (0 - 3) Urine Microscopic WBC 4 /HPF (0-3) Urine Squamous Epithelial Cells Few /hpf (<5) Urine Calcium Oxalate Crystals Many (None Seen) Urine Bacteria Few /hpf (None Seen) Urine Mucus Few (None Seen) Urine Sperm Present /hpf (None Seen) Urine Glucose 1+ mg/dL (Normal) Urine Opiates Screen Neg (NEGATIVE) Urine Fentanyl Screen Neg (NEGATIVE) Urine Barbiturates Screen Neg (NEGATIVE) Urine Phencyclidine Screen Neg (NEGATIVE) Urine Amphetamines Screen Neg (NEGATIVE) Urine Benzodiazepines Screen Neg (NEGATIVE) Urine Cocaine Screen Neg (NEGATIVE) Urine Cannabinoids Screen Neg (NEGATIVE) Prothrombin Time 10.2 sec (9.3-11.8) Prothrombin Time INR 0.96 (0.9-1.15) D-Dimer, Quantitative 0.29 mg/L FEU (0.0-0.49) Troponin I High Sensitivity 10 ng/L (</=54) B-Type Natriuretic Peptide 11.82 pg/mL (0-100) Thyroid Stimulating Hormone (TSH) 0.45 uIU/mL (0.55-4.78) Test 12/05/24 16:50 POC Glucose 143 mg/dl (70-106) Other Laboratory Tests 12/06/24 05:56 Brief Hx & Hospital Course: 4-year-old male with a history of stroke x3 hemiplegia chronic current smoker hypertension diabetes moderately obese staying in a board and care brought in for dizziness gait instability and recurrent falls. CT head negative chest x- ray negative carotid ultrasound negative DVT ruled out possible TIA ruled out patient has unsteady gait evaluated by the physical therapist recommended senior living facility placement patient was advised to quit smoking being discharged home to senior living facility for rehab for physical therapy medication management and compliance. Consults/Reason for consult Neurology consult pending Operations or Procedures CT head Carotid ultrasound Condition at Discharge: Fair Final Diagnosis/Problems List Dizziness History of Stroke x 3 in the past Hemiplegia Chronic current smoker: Counseling nicotine patch Hypertension Diabetes Moderate obesity Gait instability patient uses walker Chest x-ray negative CT head negative: Carotid ultrasound negative DVT ruled out TIA ruled out Discharge Disposition: [facility] Discharge Instruct/Medications Diet: Cardiac 2g Na,low cholest Activity: Light activity Follow Up/Referral: Follow up with the [facility] Medications: see list 35 (Time taken for discharge summary 35 minutes) Discharge Statement: "Patient was advised to return to the ER or call 911 if any headaches, dizziness, shortness of breath, chest pain, abdominal pain, bleeding, fevers, or worsening of medical condition. Patient was counseled about treatment plan, medications, possible side effects, patientverbalized understanding. All questions were answered to the best of my ability. This discharge took greater then 30 minutes in planning, reviewing documentation, counseling the patient, and discussing with other team members." ASSESSMENT ASSESSMENT Hospital Course No significant change Assessment Dizziness History of Stroke x 3 in the past Hemiplegia Chronic current smoker: Counseling nicotine patch Hypertension Diabetes Moderate obesity Gait instability patient uses walker Chest x-ray negative CT head negative: Carotid ultrasound negative DVT ruled out TIA ruled out Date of Service: Dec 08, 2024 Billing Provider: DEE DEE GAN MD Common Visit Codes: [id number] DISCH DAY >30min DEE DEE GAN MD Dec 08, 2024 12:34
[2024-12-08 13:04] VITALS: BP 136/81; PULSE 72; RESP 17; TEMP 98.5; O2SAT 96
[2024-12-08 17:08] VITALS: BP 138/79; PULSE 67; RESP 17; TEMP 98.5; O2SAT 95
== END 2024-12-08 17:51 | DRG 74 ==
LOC: ER 16:07 → OVERFLOW 20:52 → TELE-WESTW 20:56
PROVIDERS: ADMIT Family Medicine; ATTEND Family Medicine
DX: G90.89 Other disorders of autonomic nervous system (principal); I69.354 Hemiplegia and hemiparesis following cerebral infarction affecting left non-dominant side; E87.6 Hypokalemia; E66.9 Obesity, unspecified; F17.210 Nicotine dependence, cigarettes, uncomplicated; R29.6 Repeated falls; I10 Essential (primary) hypertension; Z74.09 Other reduced mobility; Z68.39 Body mass index [BMI] 39.0-39.9, adult; Z83.438 Family history of other disorder of lipoprotein metabolism and other lipidemia; Z82.49 Family history of ischemic heart disease and other diseases of the circulatory system; Z88.8 Allergy status to other drugs, medicaments and biological substances; Z88.1 Allergy status to other antibiotic agents; Z91.012 Allergy to eggs; Z91.018 Allergy to other foods; Z79.899 Other long term (current) drug therapy; Z71.6 Tobacco abuse counseling
CPT/HCPCS: 36415; 70450; 71045; 80048; 80053; 80307; 81001; 82962; 83880; 84439; 84443; 84481; 84484; 85025; 85379; 85610; 86803; 87040; 87340; 93005; 93306; 93886; 93970; 97110; 97116; 97163; 97530; 99291; G0378; J2003